=== PATIENT | male | born 1965 | race African-American/Black ===

== ENCOUNTER 2024-05-17 15:27 | Emergency (ER) | payer MEDICAID, OTHER ==
[~2024-05-17] VITALS: Ht 185.4 cm; Wt 77.0 kg
[2024-05-17 15:40] VITALS: O2SAT 100
[2024-05-17 18:17] VITALS: BP 121/77; PULSE 100; RESP 18; TEMP 36.9; O2SAT 100
== END 2024-05-17 18:18 | disposition home or self-care (01) ==
LOC: ER 15:27
DX: L84 Corns and callosities (principal)
CPT/HCPCS: 99281; 99282